=== PATIENT | male | born 1975 | race Caucasian/White ===

== ENCOUNTER → 2016-12-09 | Outpatient (CLI) | payer OTHER ==
[~2016-12-09] MED LIST: CLR10 PO; IBUP-103 PO
[2016-12-09 13:42] LABS: GLUCOSE 87 mg/dl (70-99)
[2016-12-09 13:43] LABS: ALT/SGPT 70 U/L (12-78)
[2016-12-09 13:47] LABS: ALB/GLOB RATIO 0.9 (0.9-2); ALKALINE PHOSPHATASE 50 U/L (45-117); AST/SGOT 86 U/L (15-37); BLOOD UREA NITROGEN 20 mg/dl (7-18); BUN/CREATININE RATIO 16.3 (10-20); CALCIUM 8.9 mg/dl (8.5-10.1); CARBON DIOXIDE 28 mmol/L (21-32); CHLORIDE 103 mmol/L (98-107); CHOLESTEROL 431 mg/dl (0-200); HDL CHOLESTEROL 36 mg/dl; POTASSIUM 3.8 mmol/L (3.5-5.1); SODIUM 137 mmol/L (136-145); TRIGLYCERIDES 965 mg/dl (0-150)
--- NOTE | 2017-02-11 10:48 | EDITING REQUIRED CODING QUERY ---
TREATMENT RENDERED WITHOUT A DIAGNOSIS Dr. Lozano Date of Service: 12-09-16 To promote full compliance with coding requirements relating to patient care, physician participation is requested in all cases of city weighmaster uncertainty. Please assist us with the question(s) below: Coding Question: The patient had blood work performed on 12/09/16 as per physician orders of the record. Please document the diagnosis that is being addressed for those labs. Metabolic Lipid profile fasting T4 Free Thyroid Stimulating Provider Response: Thank you Becky Desouza
== END ==
LOC: C.LAB 11:52
PROVIDERS: ATTEND Hospitalist
DX: Z01.89 Encounter for other specified special examinations (principal)

== ENCOUNTER → 2017-04-06 | Outpatient (CLI) | payer OTHER ==
[2017-04-08 16:33] LABS: MICROSOMAL AB 145 IU/ML (<9)
== END | disposition home or self-care (01) ==
LOC: C.LABBFT 14:16
PROVIDERS: ATTEND Nurse Practitioner
DX: E03.9 Hypothyroidism, unspecified (principal)

== ENCOUNTER → 2017-04-06 | Outpatient (CLI) | payer OTHER ==
--- NOTE | 2017-04-06 11:00 | DIAGNOSTIC IMAGING REPORT ---
ABDOMINAL ULTRASOUND, RIGHT UPPER QUADRANT HISTORY: Elevated transaminase level. COMPARISON: CT of the abdomen and pelvis December 15, 2010 and right upper quadrant ultrasound December 13, 2011. FINDINGS: Liver is sonographically normal. There is no biliary ductal dilatation. No gallstones are identified. There is no gallbladder wall thickening. The pancreatic body is normal. The head and tail are slightly obscured. There is no right hydronephrosis. There is a possible nonobstructing calculus within the lower pole of the right kidney which measures approximately 6 mm. IMPRESSION: 1. No gallstones or biliary ductal dilatation. 2. Possible nonobstructing 6 mm right renal calculus. Electronically signed by: Brian Urias M.D. 04/06/2017 10:59 AM Dictated Date/Time: 04/06/2017 10:57 AM
== END | disposition home or self-care (01) ==
LOC: C.ULTR 10:30
PROVIDERS: ATTEND Nurse Practitioner
DX: R74.0 Nonspecific elevation of levels of transaminase and lactic acid dehydrogenase [LDH] (principal); N20.0 Calculus of kidney

== ENCOUNTER → 2017-05-04 | Outpatient (CLI) | payer OTHER ==
[2017-05-04 13:06] LABS: FERRITIN 27.2 ng/ml (8.0-388.0); THYROID STIMULATING HORMONE 41.2 uIu/ml (0.300-4.500)
[2017-05-05 17:21] LABS: ALBUMIN 4.1 G/DL (3.8-4.8); ALPHA-1-ANTITRYPSIN TC 67710E 122 MG/DL (83-199); GAMMA GLOBULIN 1.3 G/DL (0.8-1.7); TOTAL PROTEIN 7.5 G/DL (6.2-8.3)
[2017-05-07 13:34] LABS: HEPATITIS C RNA TMA QUAL Detected
== END | disposition home or self-care (01) ==
LOC: C.LABBFT 10:18
PROVIDERS: ATTEND Nurse Practitioner
DX: E03.9 Hypothyroidism, unspecified (principal); R74.0 Nonspecific elevation of levels of transaminase and lactic acid dehydrogenase [LDH]; R77.1 Abnormality of globulin

== ENCOUNTER → 2017-05-09 | Outpatient (CLI) | payer OTHER ==
[2017-05-11 14:17] LABS: ALBUMIN % 81.35 %; ALPHA-2-GLOBULIN % 2.65 %; BETA GLOBULIN % 8.44 %; CREATININE UR 102 MG/DL (20-370)
== END | disposition home or self-care (01) ==
LOC: C.LABSPEC 08:06
PROVIDERS: ATTEND Nurse Practitioner
DX: R77.1 Abnormality of globulin (principal)

== ENCOUNTER → 2017-11-18 | Outpatient (CLI) | payer OTHER ==
[2017-11-18 17:29] LABS: BASO % 0.5 %; BASO ABS # 0.05 K/uL (0-0.2); EOS % 3.6 %; EOS ABS # 0.33 K/uL (0-0.5); HEMATOCRIT 43.1 % (42-52); HEMOGLOBIN 14.1 g/dL (14.0-18.0); IG# 0.02 K/uL (0.00-0.02); LYMPH % 31.6 %; LYMPH ABS # 2.94 K/uL (1.2-3.4); MEAN CELL VOLUME 84.3 fL (80-100); MEAN CORPUSCULAR HEMOGLOBIN 27.6 pg (25-34); MEAN CORPUSCULAR HGB CONC 32.7 g/dl (32-36); MEAN PLATELET VOLUME 9.5 fL (7.4-10.4); MONO % 7.5 %; NEUT % 56.6 %; NEUT ABS # 5.25 K/uL (1.4-6.5); PLATELET COUNT 406 K/uL (130-400); RED CELL DISTRIBUTION WIDTH SD 42.9 fL (36.4-46.3); WHITE BLOOD COUNT 9.29 K/uL (4.8-10.8)
[2017-11-18 17:54] LABS: ALBUMIN 3.4 gm/dl (3.4-5.0); ALKALINE PHOSPHATASE 102 U/L (45-117); ALT/SGPT 20 U/L (12-78); AST/SGOT 15 U/L (15-37); BLOOD UREA NITROGEN 20 mg/dl (7-18); CALCIUM 8.7 mg/dl (8.5-10.1); CARBON DIOXIDE 24 mmol/L (21-32); CREATININE 0.86 mg/dl (0.60-1.40); GLUCOSE 101 mg/dl (70-99); POTASSIUM 4.1 mmol/L (3.5-5.1); SODIUM 138 mmol/L (136-145); TOTAL PROTEIN 8.1 gm/dl (6.4-8.2)
[2017-11-21 09:17] LABS: HEPATITIS C VIRAL RNA BY PCR <15 NOT DETECTED IU/ML (<15); HEPATITIS C VIRAL RNA(LOG) PCR <1.18 NOT DETECTED LOG IU/ML (<1.18)
== END | disposition home or self-care (01) ==
LOC: C.LABBFT 15:26
PROVIDERS: ATTEND Internal Medicine
DX: B18.2 Chronic viral hepatitis C (principal); E03.9 Hypothyroidism, unspecified